=== PATIENT | female | born 1945 | race Caucasian/White ===

== ENCOUNTER → 2023-05-31 10:18 | Outpatient (REF) | payer MEDICARE, SELFPAY | LOC: RAD 10:18 | PROVIDERS: ATTENDING PHYSICIAN Family Medicine | DX: I25.10 Atherosclerotic heart disease of native coronary artery without angina pectoris (principal); I25.84 Coronary atherosclerosis due to calcified coronary lesion | CPT/HCPCS: 75571 ==

== ENCOUNTER → 2023-07-26 11:51 | Outpatient (REF) | payer MEDICARE, SELFPAY | LOC: DHCBC/DCA 11:51 | PROVIDERS: ATTENDING PHYSICIAN Internal Medicine Cardiovascular Disease; FAMILY PHYSICIAN Family Medicine | DX: R06.09 Other forms of dyspnea (principal); I45.2 Bifascicular block; R94.31 Abnormal electrocardiogram [ECG] [EKG] | CPT/HCPCS: 78452; 93017; A9500 ==

== ENCOUNTER → 2023-09-30 08:52 | Outpatient (REF) | payer MEDICARE, SELFPAY | LOC: RCS 08:52 | PROVIDERS: ATTENDING PHYSICIAN Internal Medicine Cardiovascular Disease; FAMILY PHYSICIAN Family Medicine | DX: I25.10 Atherosclerotic heart disease of native coronary artery without angina pectoris (principal); E78.2 Mixed hyperlipidemia; I49.9 Cardiac arrhythmia, unspecified; R06.09 Other forms of dyspnea; R94.31 Abnormal electrocardiogram [ECG] [EKG] | CPT/HCPCS: 93306 ==

== ENCOUNTER → 2023-10-13 09:14 | Outpatient (REF) | payer MEDICARE, SELFPAY | LOC: RCS 09:14 | PROVIDERS: ATTENDING PHYSICIAN Internal Medicine Cardiovascular Disease; FAMILY PHYSICIAN Family Medicine | DX: I49.9 Cardiac arrhythmia, unspecified (principal); I45.2 Bifascicular block | CPT/HCPCS: 93225; 93226 ==

== ENCOUNTER 2023-11-27 16:02 | Emergency (ER) | payer MEDICARE, SELFPAY ==
[2023-11-27 16:03] VITALS: BP 161/96
--- NOTE | 2023-11-27 17:26 | ED.GENMED ---
History of Present Illness
General
Chief Complaint: Skin Problem
Source: patient
Exam Limitations: none
Time Seen by Provider: 11/27/23 16:45
Nursing documentation reviewed up to this point in time: agreed with
History of Present Illness
History of Present Illness:
78-year-old female with past medical history of anxiety presenting to the emergency department today with concerns of swelling to her left hand that seem to occur 2 nights ago when she was out to dinner she denies any obvious injuries but noticed
bruising on her left dorsal hand between the thumb and the index finger region. Has noticed ongoing bruising since was seen in urgent care yesterday where she had x-rays and labs without any acute abnormalities. She denies any chest pain shortness
breath fevers or additional concerns no redness or warmth no significant pain. She was told that if the bruising moved at all that she should come to the ER. She claims that moving slightly into her wrist.
Review of Systems
Review of Systems
Allergies reviewed?: Yes
All Other Systems: ROS reviewed and negative except as documented in HPI and ROS
Phy Exam
Physical Exam
Physical Exam:
GENERAL: Alert , in no apparent distress
EYE: pupils equal and reactive
NECK: Supple, no significant adenopathy.
ENT: o/p clr, mmm.
CARDIAC: Regular rate and rhythm .
LUNGS: Clear breath sounds bilaterally, no acute respiratory distress, no wheezes/rales/rhonchi
ABDOMEN: Soft, without focal tenderness, no r/g, no cvat
NEUROLOGICAL: Alert and oriented, no focal neuro deficits
SKIN: Ecchymosis spanning from the area between the first and second metacarpals on the dorsal aspect of the left hand with surrounding ecchymosis moving into the distal forearm over the wrist. Good range of motion strength of the wrist normal pattern finisher
strength normal finger range of motion normal distal capillary refill normal radial and ulnar pulses. Warm and dry, skin intact.
MUSCULOSKELETAL: No edema, well perfused.
PSYCH: Normal and appropriate interaction.
Course
Vital Signs
Initial and Last Documented VS:
Initial Vital Signs
Temp Pulse Resp BP Pulse Ox
99 F 98 16 161/96 96
11/27/23 16:03 11/27/23 16:03 11/27/23 16:03 11/27/23 16:03 11/27/23 16:03
Last Documented Vital Signs
Temp Pulse Resp BP Pulse Ox
99 F 98 16 161/96 96
11/27/23 16:03 11/27/23 16:03 11/27/23 16:03 11/27/23 16:03 11/27/23 16:03
MDM/Problems Addressed
MDM/Problems Addressed:
78-year-old female presenting to the emergency department today with concerns of bruising worsening to her left hand. Denies obvious injury but is unsure if she could have banged this into anything. Initially noticed bruising 2 days ago. She was
seen at urgent care had an x-ray and labs without acute abnormalities. She had a normal platelet level and normal blood counts otherwise. Here there is ecchymosis which seem to originate from the hand. The bruising has now extended past the
wrist. She is good range of motion strength no redness and warmth normal distal capillary refill normal pulses. No evidence of infection no redness or warmth no signs of acute bony injury. Symptoms seem to be consistent with bruising but does not
appear to be consistent with rapidly expanding hematoma or arterial injury. Patient was wrapped with an Fernandez bandage but otherwise recommended for outpatient management. Return precautions were given. She was advised for close primary care
follow-up.
*Critical Care Note
Total Time (30-74mins, 75-104mins- exclusive of procedures): Not Applicable
ED Attending Note
-
Portions of this chart may have been created with voice recognition software.� Occasional wrong word or��sound alike� substitutions may have occurred due to the inherent limitations of voice recognition software.
Discharge Plan
Departure
Patient Disposition: Home (Routine Discharge)
Date of Disposition: 11/27/23
Time of Disposition: 17:32
Patient with high blood pressure during this ER visit?: No
Condition: Good
Covid-19: Not Applicable
Discharge Problem:
Bruise
Instructions: Contusion
Referrals:
Ever Ramírez, DO [Family Provider] -
Activity Restrictions/Additional Instructions:
You came to the emergency department today with concerns of hand bruising. There is no evidence of life-threatening issue at this point. Return for any worsening, new or concerning symptoms.
Interventions
Interventions:
*Risk Screen - Suicide Last Done: 11/27/23 16:09
*Neglect/Abuse Screening Last Done: 11/27/23 16:09
Discharge Date and Time
Print Language: ROMANIAN
== END 2023-11-27 17:53 | disposition home or self-care (01) ==
LOC: EMR 16:02
PROVIDERS: EMERGENCY PHYSICIAN Student in an Organized Health Care Education/Training Program; FAMILY PHYSICIAN Family Medicine
DX: S60.222A Contusion of left hand, initial encounter (principal); X58.XXXA Exposure to other specified factors, initial encounter; F41.9 Anxiety disorder, unspecified
CPT/HCPCS: 99282